=== PATIENT | female | born 1935 | race Caucasian/White ===

== ENCOUNTER 2019-02-18 12:43 | Emergency (ER) | payer MEDICARE, OTHER ==
[~2019-02-18] VITALS: Ht 157.5 cm; Wt 129.3 kg
[~2019-02-18 12:43] MED LIST: ASPI-869 PO; BIMA2.5D EACHEYE; DORZ10DR10 OP; INSU100V11 SQ; LEVO112T2 PO; METF-442 PO; METO-357 PO; VALS160T2 PO
[2019-02-18 13:10] VITALS: BP 150/84
[2019-02-18] MEDS ORDERED: LORAZEPAM INJ 2 MG/ML VIAL IM ONE (13:30)
[2019-02-18] MEDS ORDERED: KETOROLAC TROMETHAMINE INJ 60 MG/2 ML VIAL IM ONE (13:30)
[2019-02-18] MEDS ORDERED: KETOROLAC TROMETHAMINE INJ 30 MG/ML VIAL ONE (13:39)
[2019-02-18] MEDS ORDERED: LORAZEPAM INJ 2 MG/ML VIAL ONE (13:39)
== END 2019-02-18 14:43 | disposition home or self-care (01) ==
LOC: ER 12:49
DX: M54.31 Sciatica, right side (principal); I10 Essential (primary) hypertension; E11.9 Type 2 diabetes mellitus without complications; M19.90 Unspecified osteoarthritis, unspecified site; Z98.890 Other specified postprocedural states; Z79.899 Other long term (current) drug therapy; Z79.84 Long term (current) use of oral hypoglycemic drugs; Z79.4 Long term (current) use of insulin; Z79.82 Long term (current) use of aspirin
CPT/HCPCS: 96372 ×2; 99283; J1885; J2060

== ENCOUNTER 2019-07-15 08:56 | Inpatient (IN) | payer MEDICARE, OTHER ==
[~2019-07-15] VITALS: Ht 152.4 cm; Wt 79.4 kg
--- NOTE | 2019-07-15 09:10 | NUR ---
[place] COOL From home"Syncopal episode today according to family-on arrival she was back to her baseline. Fell yesterday but refused hospital BS 304". On room air, breathing evenly an dunlabored. connected to the monitor and pulse ox. kept comfortable, will continue to monitor accordingly.
[2019-07-15] MEDS ORDERED: IV NS 0.9% 500 ML BAG IV ONE (09:30)
[2019-07-15 09:51] LABS: BASOPHILS # (AUTO) 0.1 /CMM (0.0-0.2); BASOPHILS % (AUTO) 0.5 % (0.0-2.0); EOSINOPHILS % (AUTO) 1.2 % (0.0-6.0); HEMATOCRIT 31 % (33-45); HEMOGLOBIN 10.1 g/dL (11.5-14.8); LYMPHOCYTES # (AUTO) 1.2 /CMM (0.8-4.8); LYMPHOCYTES % (AUTO) 9.5 % (20.0-44.0); MEAN CORPUSCULAR HGB CONC 33 g/dl (31.0-36.0); MEAN CORPUSCULAR VOLUME 98 fL (82-100); MONOCYTES # (AUTO) 0.8 /CMM (0.1-1.30); MONOCYTES % (AUTO) 6.8 % (2.0-12.0); NEUTROPHILS # (AUTO) 10.1 /CMM (1.8-8.9); PLATELET COUNT (AUTO) 208 /CMM (150-450); RED BLOOD CELL COUNT(AUTO) 3.17 MIL/uL (4.0-5.2); WHITE BLOOD COUNT (AUTO) 12.4 K/uL (4.3-11.0)
[2019-07-15 10:07] LABS: ALANINE AMINOTRANSFERASE 18 U/L (12-78); ALBUMIN 2.8 g/dL (3.4-5.0); ALKALINE PHOSPHATASE 88 U/L (46-116); ASPARTATE AMINOTRANSFERASE 17 U/L (15-37); BILIRUBIN,DIRECT 0.1 mg/dL (0.0-0.2); BILIRUBIN,TOTAL 0.3 mg/dL (0.2-1.0); CALCIUM, SERUM 8.6 mg/dL (8.5-10.1); CARBON DIOXIDE 19 mmol/L (21-32); CHLORIDE 107 mmol/L (98-107); GLUCOSE 277 mg/dL (74-106); POTASSIUM 3.1 mmol/L (3.5-5.1); SODIUM SERUM 140 mmol/L (136-145); TOTAL PROTEIN, SERUM 6.1 g/dL (6.4-8.2); UREA NITROGEN, BLOOD 46 mg/dL (7-18)
--- NOTE | 2019-07-15 10:18 | NUR ---
CALLED HOUSE SUP FOR TELE BED
[2019-07-15] MEDS ORDERED: CHOL100062 PO (10:29)
[2019-07-15] MEDS ORDERED: PROP20TA7 PO (10:29)
[2019-07-15] MEDS ORDERED: DULA0.75 SQ (10:29)
[2019-07-15] MEDS ORDERED: FURO-145 PO (10:29)
[2019-07-15] MEDS ORDERED: DOXY100C2 (10:29)
[2019-07-15] MEDS ORDERED: DORZ10DR10 EACHEYE (10:29)
[2019-07-15] MEDS ORDERED: IBUP-1955 PO (10:29)
[2019-07-15] MEDS ORDERED: ACET-2605 PO (10:29)
[2019-07-15] MEDS ORDERED: INSU10VI SQ (10:29)
[2019-07-15] MEDS ORDERED: GABA-532 PO (10:29)
[2019-07-15] MEDS ORDERED: BIMA2.5D5 EACHEYE (10:29)
--- NOTE | 2019-07-15 10:47 | NUR ---
room 313-2
--- NOTE | 2019-07-15 10:55 | NUR ---
report given to Miguel SAWANT for freddy.
--- NOTE | 2019-07-15 11:00 | NUR ---
wheeled patient via gurney accompanied by RN and emt in no distress. RN at bedside to assume care.
[2019-07-15 12:00] VITALS: BP 95/63
--- NOTE | 2019-07-15 12:33 | NUR ---
RN OPENING NOTES RECEIVED PATIENT VIA GURNEY FROM THE ED. PT IS AOX3, VERBAL, AND BED BOUND. SHE IS ON 2L OF OXYGEN FOR COMFORT, NO SOB OR RESP DISTRESS. TELE MONITOR SHOWING SR. IV SITE ON RAC IS PATENT AND INTACT. EYES ARE PERRLA, LUNGS SOUND CLEAR UPON AUSCULTATION, SKIN IS NOT INTACT. LARGE OPEN WOUND ON SACRUM PRESENT. WOUND CONSULT ORDERED. MD ODONNELL MADE AWARE OF PT ARRIVAL TO THE UNIT, WAITING FOR ADMITTING ORDERS. SAFETY MEASURES HAVE BEEN IMPLEMENTED, CALL LIGHT IS WITHIN REACH, BED IS IN LOWEST AND LOCKED POSITION, SIDE RAILS UP X2, WILL CONTINUE TO MONITOR FOR ANY CHANGES.
[2019-07-15] MEDS ORDERED: MAGNESIUM HYDROXIDE 30 ML UDC PO PRN (14:00)
[2019-07-15] MEDS ORDERED: MAG HYDROX/AL HYDROX/SIMETH 30 ML UDC PO PRN (14:00)
[2019-07-15] MEDS ORDERED: Z GUARD REMEDY 2 OZ OINT TP PRN (14:00)
[2019-07-15] MEDS ORDERED: ONDANSETRON HCL/PF 4 MG/2 ML VIAL IVP PRN (14:00)
[2019-07-15] MEDS ORDERED: ACETAMINOPHEN 325 MG TABLET PO PRN (14:00)
[2019-07-15] MEDS ORDERED: ZOLPIDEM TARTRATE 5 MG TABLET PO PRN (14:00)
--- NOTE | 2019-07-15 14:00 | NUR ---
RN NOTES PT TROPONIN LEVEL TRENDING UP, MD ODONNELL MADE AWARE. RECEIVED ORDER FOR ASPIRIN 325 MG ONE TIME, FOLLOWED BY 81 MG ASA DAILY TO BE STARTED TOMORROW. K LEVEL OF 3.1 REPLACED.
[2019-07-15 16:00] VITALS: BP 130/68
[2019-07-15] MEDS ORDERED: ASPIRIN 325 MG TABLET PO ONE (16:00)
[2019-07-15] MEDS ORDERED: DEXTROSE 50%-WATER 50 ML DISP.SYRIN IV PRN (16:00)
[2019-07-15] MEDS ORDERED: POTASSIUM CHLORIDE 20 MEQ TAB.PRT.SR PO ONE (17:00)
[2019-07-15] MEDS: BLOOD SUGAR DIAGNOSTIC 1 EACH STRIP VI SCH ×2 (17:12→21:53)
[2019-07-15] MEDS: INSULIN REGULAR, HUMAN 100 UNIT/ML 3 ML VIAL SQ PRN (17:18)
--- NOTE | 2019-07-15 18:51 | NUR ---
RN CLOSING NOTES PATIENT IS RESTING IN BED COMFORTABLY IN BED, NO S.SX OF DISTRESS. EXPLAINED TO PATIENT THAT URINE SAMPLE IS STILL NEEDED, SHE REFUSED STRAIGHT CATH. PT NEEDS HAVE BEEN MET, VITAL SIGNS ARE STABLE, NO ACUTE CHANGES OCCURRED THROUGHOUT THE SHIFT. SAFETY MEASURES HAVE BEEN IMPLEMENTED, CALL LIGHT IS WITHIN REACH, BED IS IN LOWEST AND LOCKED POSITION, SIDE RAILS UP X2, WILL CONTINUE TO MONITOR FOR ANY CHANGES.
--- NOTE | 2019-07-15 19:41 | NUR ---
RN OPENING NOTES PATIENT RECEIVED RESTING IN BED, A/O X3 MOSTLY SLOV[place] SPEAKING, BUT ABLE TO MAKE NEEDS KNOWN. STABLE ON RA WITH BREATHING EVEN AND UNLABORED, NO SOB NOTED. NO SIGNS OF ACUTE DISTRESS. NO COMPLAINTS OF PAIN OR DISCOMFORT. IV LOCATED ON RAC #18 SL. TELE MONITOR READING SR. SAFETY PRECAUTIONS IN PLACE WITH BED IN LOWEST POSITION, CALL LIGHT WITHIN REACH, BREAKS ON, SIDE RAILS UP. WILL CONTINUE TO MONITOR THROUGHOUT THE SHIFT.
[2019-07-15 20:00] VITALS: BP_SYST 112; BP_SYST 117; BP_DIAS 65
--- NOTE | 2019-07-15 20:18 | NUR ---
SOCIAL MEDIA SENIOR ASSOCIATE NOTES URINE SAMPLE COLLECTED VIA BED FRANKEL.
[2019-07-15] MEDS: HYDROCODONE/APAP 5/325MG TABLET PO PRN (21:53)
[2019-07-15] MEDS: *INSULIN REGULAR(HUMULIN R)HUM 100 UNIT/ML VIAL SQ PRN (21:56)
[2019-07-15 23:39] LABS: APPEARANCE,URINE SL CLOUDY (CLEAR); BILIRUBIN,URINE NEGATIVE (NEGATIVE); BLOOD, URINE TRACE-INTA Ery/uL (NEGATIVE); COLOR,URINE YELLOW (YELLOW); KETONES,URINE NEGATIVE (NEGATIVE); LEUKOCYTE ESTERASE ,URINE TRACE (NEGATIVE); NITRITE, URINE NEGATIVE (NEGATIVE); PROTEIN,URINE TRACE mg/dl (NEGATIVE); UGLUCOSE >=1000 mg/dL (NEGATIVE); UROBILINOGEN,URINE 0.2 EU/dL (0.2)
[2019-07-15 23:55] LABS: CREATININE, URINE 86.7 MG/DL (30.0-125.0); URINE TOTAL PROTEIN 67.5 mg/dL (0-11.9)
[2019-07-16] VITALS (9 sets, daily range): BP systolic 59–135; BP diastolic 46–74
[2019-07-16 00:10] LABS: BACTERIA,URINE Moderate /HPF (None Seen); SQUAMOUS EPITHELIAL CELL,UR Moderate /HPF (None Seen); YEAST,URINE Few /HPF (None Seen)
--- NOTE | 2019-07-16 00:25 | NUR ---
TRIAL CONSULTANT NOTES FOLLOWED UP WITH SKATING RINK ICE MAKER KAUSHAL ABOUT PT VTE SCORE, C/I FOR SCD DEVICES AND NO CHEMICAL PROPHYLAXIS ORDERED. NO NEW ORDERS AT THE MOMENT.
[2019-07-16 00:58] LABS: EOSINOPHIL,URINE None Seen
[2019-07-16] MEDS: BLOOD SUGAR DIAGNOSTIC 1 EACH STRIP VI SCH ×4 (06:41→21:24)
[2019-07-16] MEDS: INSULIN REGULAR, HUMAN 100 UNIT/ML 3 ML VIAL SQ PRN ×3 (06:45→22:42)
--- NOTE | 2019-07-16 07:02 | NUR ---
NURSE CASE MANAGER OPENING NOTES RECEIVED PATIENT RESTING IN BED, A/O X3. CROATIAN SPEAKING, ABLE TO VERBALIZE NEEDS. PATIENT IS SATURATING WELL ON RA. RESPIRATIONS EVEN AND UNLABORED, NO SOB NOTED. NO S/S OF ANY ACUTE DISTRESS. NO C/O PAIN NOTED AT THIS TIME. IV ACCESS TO RAC G#18 INTACT, PATENT, FLUSHING WELL AND SL. EXTERNAL TELE MONITOR READING SR IN THE 80S-90S. SAFETY PRECAUTIONS IN PLACE. BED IN LOWEST LOCKED POSITION, HOB ELEVATED TO SMEI FOWLERS POSITION, SIDE RIALS UP X3, CALL LIGHT WITHIN REACH. WILL CONTINUE TO MONITOR.
[2019-07-16 08:06] LABS: BASOPHILS # (AUTO) 0.1 /CMM (0.0-0.2); BASOPHILS % (AUTO) 0.6 % (0.0-2.0); EOSINOPHILS % (AUTO) 1.3 % (0.0-6.0); HEMATOCRIT 31 % (33-45); HEMOGLOBIN 10.2 g/dL (11.5-14.8); LYMPHOCYTES # (AUTO) 1.9 /CMM (0.8-4.8); LYMPHOCYTES % (AUTO) 17.4 % (20.0-44.0); MEAN CORPUSCULAR HGB CONC 33 g/dl (31.0-36.0); MEAN CORPUSCULAR VOLUME 96 fL (82-100); MONOCYTES # (AUTO) 0.9 /CMM (0.1-1.30); MONOCYTES % (AUTO) 7.7 % (2.0-12.0); NEUTROPHILS # (AUTO) 8.1 /CMM (1.8-8.9); PLATELET COUNT (AUTO) 199 /CMM (150-450); RED BLOOD CELL COUNT(AUTO) 3.22 MIL/uL (4.0-5.2); WHITE BLOOD COUNT (AUTO) 11.1 K/uL (4.3-11.0)
[2019-07-16] MEDS ORDERED: IV NS 0.9% 1,000 ML IV PRN (08:06)
[2019-07-16 08:22] LABS: ALANINE AMINOTRANSFERASE 16 U/L (12-78); ALBUMIN 2.6 g/dL (3.4-5.0); ALKALINE PHOSPHATASE 88 U/L (46-116); ASPARTATE AMINOTRANSFERASE 21 U/L (15-37); BILIRUBIN,TOTAL 0.3 mg/dL (0.2-1.0); CALCIUM, SERUM 8.6 mg/dL (8.5-10.1); CARBON DIOXIDE 16 mmol/L (21-32); CHLORIDE 106 mmol/L (98-107); CREATININE 1.8 mg/dL (0.6-1.3); GLUCOSE 183 mg/dL (74-106); MAGNESIUM 1.9 mg/dL (1.8-2.4); POTASSIUM 3.5 mmol/L (3.5-5.1); SODIUM SERUM 137 mmol/L (136-145); TOTAL PROTEIN, SERUM 6.2 g/dL (6.4-8.2); UREA NITROGEN, BLOOD 49 mg/dL (7-18)
[2019-07-16] MEDS: ASPIRIN 81 MG TAB.CHEW PO SCH (08:26)
[2019-07-16] MEDS: PANTOPRAZOLE 40 MG TABLET.DR PO SCH (08:26)
[2019-07-16] MEDS: ATORVASTATIN 10 MG TABLET PO SCH (08:27)
[2019-07-16 08:30] LABS: CREATINE KINASE, TOTAL 92 U/L (26-192); THYROID STIMULATING HORMONE 3.453 uIU/mL (0.358-3.74)
[2019-07-16 09:00] LABS: THYROID STIMULATING HORMONE 3.617 uIU/mL (0.358-3.74)
[2019-07-16] MEDS ORDERED: IBUPROFEN 600 MG TABLET PO PRN (10:00)
[2019-07-16] MEDS ORDERED: HEPARIN SODIUM, PORCINE 5000 UNITS/1 ML VIAL IV ONE (10:00)
--- NOTE | 2019-07-16 10:08 | NUR ---
PER PEG FROM NUCLEAR MEDICINE, NURSE SHOULD GET CONSENT FOR NUCLEAR MEDICINE PULMONARY PERFUSION WITH VENTILATION. ORDER READ BACK. TELEPHONE CONSENT OBTAINED FROM CHANI (PATIENTS DAUGHTER). ORDERS CARRIED OUT, WILL CONTINUE TO MONITOR
--- NOTE | 2019-07-16 10:20 | NUR ---
PT SEEN BY WOUND NURSE, WOUND TREATMENT DONE, PICTURES OF BLE WOUND TAKEN, DOCUMENT AND FILED IN CHART. WILL CONTINUE TO MONITOR.
--- NOTE | 2019-07-16 10:34 | NUR ---
TELE/RN NOTE PRIMARY NURSE BENTLEY (RN) IS MADE AWARE OF EXTREMITY VENOUS STUDY RESULT WHICH WAS REPORTED TO ME VIA THE PHONE. SEE BELOW THE REPORT GIVEN TO ME AND ENDORSED TO BENTLEY (RN). "POSITIVE DVT WITHIN THE LEFT MID TO DISTAL SUPERFICIAL FEMORAL VEIN AND LEFT POPLITEAL VEIN. No evidence of DVT within the right lower extremity".
[2019-07-16] MEDS: HEPARIN INFUSION/D5W 500 ML IV PRN (10:37)
--- NOTE | 2019-07-16 10:55 | NUR ---
STAT PTT OBTAINED, PATIENT STARTED ON HEPARIN DRIP NOW PER DR GRIGGS'S ORDER. ANOTHER PTT SCHEDULED FOR 1654. WILL CONTINUE TO MONITOR
--- NOTE | 2019-07-16 11:05 | NUR ---
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 PT NOTED TO HAVE WRAPS ON HER LOWER LEGS WHICH WERE REMOVED, REVEALING WOUNDS TO LOWER LEGS AND DRY ESCHAR TO LEFT HEEL, PRESENT ON ADMISSION. PT STATES HAS BEEN TREATED FOR LOWER EXTREMITIES BY A DR COTO ON OUTPATIENT BASIS. RECOMMEND SURGICAL AND DPM CONSULTS. DR FLY MOSHER AND DR SERRA NOTIFIED OF CONSULT REQUESTS. RECOMMENDATIONS MADE FOR SKIN PROTECTION AND FOR SACRAL WOUND CARE. DEFER TO DPM FOR LOWER EXTREMITIES. ISOFLEX LOW AIRLOSS BED TO BE PLACED WHEN AVAILABLE. WILL SEE PRN. CURRENT MIL SCORE IS 14. MD IN AGREEMENT WITH PLAN OF CARE. Addendum: 07/16/19 at 1109 by FREDI KING WNDNU Amended: Links added.
[2019-07-16] MEDS: HYDROCODONE/APAP 5/325MG TABLET PO PRN ×3 (11:30→21:26)
[2019-07-16] MEDS: HYDROGEL DRESSING 90 GM TUBE TP PRN (12:09)
[2019-07-16] MEDS: *INSULIN REGULAR(HUMULIN R)HUM 100 UNIT/ML VIAL SQ PRN (12:16)
[2019-07-16] MEDS: HYDROGEL DRESSING 90 GM TUBE TP SCH (12:26)
[2019-07-16] MEDS: METOPROLOL TARTRATE 50 MG TABLET PO SCH ×2 (12:42→17:19)
--- NOTE | 2019-07-16 13:20 | NUR ---
PATIENT POSITIVE DVT WITHIN LEFT MID TO DISTAL SUPERFICIAL FEMORAL VEIN AND LEFT POPLITEAL VEIN. DR ODONNELL MADE AWARE, NO NEW ORDERS. WILL CONTINUE TO MONITOR
--- NOTE | 2019-07-16 14:50 | NUR ---
PATIENT TRANSPORTED OUT OF UNIT BY BED FOR NUCLEAR MEDICINE PULMONARY PERFUSION WITH VENTILATION PROCEDURE AT THIS TIME. ACLS PROTOCOL IN PLACE. WILL CONTINUE TO MONITOR
--- NOTE | 2019-07-16 16:00 | NUR ---
PATIENT TRANSPORTED BACK BY BED TO [facility] AT THIS TIME. PT APPEARS COMFORTABLE. WILL CONTINUE TO MONITOR
[2019-07-16] MEDS: FUROSEMIDE 20 MG TABLET PO SCH (16:43)
[2019-07-16] MEDS: GABAPENTIN 100 MG CAPSULE PO SCH (16:44)
[2019-07-16] MEDS: PROPRANOLOL HCL 10 MG TABLET PO SCH (16:44)
[2019-07-16] MEDS: DORZOLAMIDE OPTH 2% 10 ML BOTTLE EACHEYE SCH (16:49)
--- NOTE | 2019-07-16 17:55 | NUR ---
CRITICAL LAB VALUE FOR PTT > 170 CALLED IN BY SONNY CULP, SILO WORKER. DOCTOR ODONNELL AND SONNY, CHARGE NURSE MADE AWARE. ASSESSED PATIENT, NO BLEEDING NOTED, NO BLEEDING ON IV SITE. HEPARIN DRIP HELD FOR 1HOUR, HEPARIN PROTOCOL FOLLOWED. WILL ORDER PTT AND RESTART HEPARIN AT 950CC/HR. NO NEW ORDERS, WILL CONTINUE TO MONITOR Addendum: 07/16/19 at 1859 by BENTLEY GR RN CRITICAL LAB VALUE FOR PTT > 170 CALLED IN BY SONNY CULP, SILO WORKER. DOCTOR ODONNELL AND SONNY, CHARGE NURSE MADE AWARE. ASSESSED PATIENT, NO BLEEDING NOTED, NO BLEEDING ON IV SITE. HEPARIN DRIP HELD FOR 1HOUR, HEPARIN PROTOCOL FOLLOWED. WILL ORDER PTT AND RESTART HEPARIN AT 950U/HR AT 19ML/HR. NO NEW ORDERS, WILL CONTINUE TO MONITOR
--- NOTE | 2019-07-16 18:40 | NUR ---
DARELL, HEALTHCARE CUSTOMER SERVICE REQUESTED NURSE TO CALL PT'S FAMILY TO BRING TRULICITY MEDICATION. PT'S DAUGHTER MADE AWARE AND WILL BE BRINGING MEDICATION TOMORROW. WILL CONTINUE TO MONITOR
--- NOTE | 2019-07-16 19:00 | NUR ---
HEPARIN 950U/H DRIP RESTARTED AT THIS TIME AT 19ML/HR. PTT SCHEDULED AFTER 6HOURS. WILL CONTINUE TO MONITOR
--- NOTE | 2019-07-16 19:03 | NUR ---
LADLE WATCHER CLOSING NOTES PT IN BED AWAKE AT THIS TIME. PT REMAINED STABLE THROUGH OUT SHIFT. ALL NEEDS, CARE, WOUND TREATMENT AND MEDICATION ADMINISTERED ANTICIPATED PER ORDER. PT KEPT CLEAN AND DRY. PAIN MANAGEMENT ADMINISTERED. BED IS LOWEST LOCKED POSITION, HOB ELEVATED TO SEMI FOWLERS POSITION, SIDE RIALS UP X3, CALL LIGHT WITHIN REACH. WILL ENDORSE TO MICROFILM OPERATOR NURSE FOR NATALIA
[2019-07-16] MEDS: LATANOPROST EYE DROP 0.005% 2.5 ML BOTTLE OP SCH (21:25)
--- NOTE | 2019-07-16 22:05 | NUR ---
PONY WORKER NOTES AT 2119 IV ON RAC FOUND TO BE INFILTRATED, AT 2134 IV TEAM PAGED, AFTER MULTIPLE UNSUCCESSFUL ATTEMPTS. @2203 MIDLINE WITH 18G PLACED BY YESIKA SAWANT. HEPARIN GTT THEN RESUMED. WILL CONT TO MONITOR
[2019-07-17] VITALS: BP 97/40
--- NOTE | 2019-07-17 02:00 | NUR ---
PROJECT MGR NOTES aPTT DRAWN AND RESULT IS 148.7, PER DOSING ORDER HELD HEPARIN GTT FOR 60 MINS THEN LOWERED BY 250, SO 950 TO 700U/HR. ED WELL
[2019-07-17 04:00] VITALS: BP 102/52
[2019-07-17 04:26] VITALS: BP 102/52
[2019-07-17 05:07] LABS: PTH, INTACT 12 pg/mL (15-65)
[2019-07-17] MEDS: HYDROCODONE/APAP 5/325MG TABLET PO PRN ×3 (05:45→23:35)
[2019-07-17] MEDS: METOPROLOL TARTRATE 50 MG TABLET PO SCH ×5 (06:00→23:35)
[2019-07-17 06:28] LABS: BASOPHILS # (AUTO) 0.1 /CMM (0.0-0.2); BASOPHILS % (AUTO) 0.8 % (0.0-2.0); EOSINOPHILS % (AUTO) 1.9 % (0.0-6.0); HEMATOCRIT 28 % (33-45); HEMOGLOBIN 9.5 g/dL (11.5-14.8); LYMPHOCYTES # (AUTO) 2.3 /CMM (0.8-4.8); LYMPHOCYTES % (AUTO) 22.1 % (20.0-44.0); MEAN CORPUSCULAR HGB CONC 34 g/dl (31.0-36.0); MEAN CORPUSCULAR VOLUME 96 fL (82-100); MONOCYTES # (AUTO) 0.8 /CMM (0.1-1.30); MONOCYTES % (AUTO) 7.6 % (2.0-12.0); NEUTROPHILS # (AUTO) 7.1 /CMM (1.8-8.9); NEUTROPHILS % (AUTO) 67.6 % (43.0-81.0); PLATELET COUNT (AUTO) 192 /CMM (150-450); RED BLOOD CELL COUNT(AUTO) 2.96 MIL/uL (4.0-5.2); WHITE BLOOD COUNT (AUTO) 10.5 K/uL (4.3-11.0)
[2019-07-17 06:49] LABS: CALCIUM, SERUM 8.6 mg/dL (8.5-10.1); CARBON DIOXIDE 16 mmol/L (21-32); CHLORIDE 103 mmol/L (98-107); CREATININE 1.9 mg/dL (0.6-1.3); GLUCOSE 256 mg/dL (74-106); MAGNESIUM 1.9 mg/dL (1.8-2.4); PHOSPHORUS 4.7 mg/dL (2.5-4.9); POTASSIUM 3.5 mmol/L (3.5-5.1); SODIUM SERUM 135 mmol/L (136-145); UREA NITROGEN, BLOOD 54 mg/dL (7-18)
--- NOTE | 2019-07-17 07:30 | NUR ---
PODIATRIC AIDE OPENING NOTES RECEIVED PATIENT AWAKE IN BED ALERT AND ORIENTED X 3, PATIENT IS MONTSERRATIAN SPEAKING AND CAN UNDERSTAND SOME MALTESE, ABLE TO VERBALIZE NEEDS. PATIENT IS SATURATING WELL ON ROOM AIR. RESPIRATIONS EVEN AND UNLABORED, NO SOB NOTED. NO S/S OF ANY ACUTE DISTRESS. NO C/O PAIN NOTED AT THIS TIME. IV ACCESS TO RAC G#18 INTACT, PATENT, FLUSHING WELL AND SL. EXTERNAL TELE MONITOR READING SR 65. SAFETY PRECAUTIONS IN PLACE. BED IN LOW AND LOCKED, HOB ELEVATED TO SMEI FOWLERS POSITION, SIDE RIALS UP X3, CALL LIGHT WITHIN REACH. WILL CONTINUE TO MONITOR THROUGH OUT SHIFT.
--- NOTE | 2019-07-17 07:32 | NUR ---
TELE/RN NOTE MERRY G 18 MIDLINE PATENT AND HEPARIN INFUSING AT 700 U/H. NO APPARENT S/S BLEEDING NOTED AT THIS TIME. WILL CONTINUE TO MONITOR.
[2019-07-17] MEDS: BLOOD SUGAR DIAGNOSTIC 1 EACH STRIP VI SCH ×4 (07:51→21:58)
[2019-07-17] MEDS: INSULIN REGULAR, HUMAN 100 UNIT/ML 3 ML VIAL SQ PRN ×3 (07:51→22:14)
[2019-07-17 08:00] VITALS: BP 106/56
[2019-07-17] MEDS: PROPRANOLOL HCL 10 MG TABLET PO SCH (09:00)
--- NOTE | 2019-07-17 09:15 | NUR ---
TELE/RN NOTE STILL WAITING FOR APPT RESULT. FOLLOW UP CALL WITH LAB WAS MADE. WILL CONTINUE TO FOLLOW-UP.
[2019-07-17] MEDS: GABAPENTIN 100 MG CAPSULE PO SCH ×2 (09:27→18:07)
[2019-07-17] MEDS: FUROSEMIDE 20 MG TABLET PO SCH (09:27)
[2019-07-17] MEDS: ASPIRIN 81 MG TAB.CHEW PO SCH (09:27)
[2019-07-17] MEDS: ATORVASTATIN 10 MG TABLET PO SCH (09:27)
[2019-07-17] MEDS: CHOLECALCIFEROL 1,000 UNIT TABLET (VIT D3) PO SCH (09:27)
[2019-07-17] MEDS: DORZOLAMIDE OPTH 2% 10 ML BOTTLE EACHEYE SCH ×2 (09:28→18:09)
[2019-07-17] MEDS: HYDROGEL DRESSING 90 GM TUBE TP SCH (09:28)
[2019-07-17] MEDS: PANTOPRAZOLE 40 MG TABLET.DR PO SCH (09:30)
--- NOTE | 2019-07-17 09:50 | NUR ---
TELE/RN NOTE RECEIVED CALL FROM LAB REPORTING PTT RESULT 112. PER PROTOCOL HOLDING INFUSING FOR 60 MIN NOW AND AFTER 60 MIN WILL DECREASE HEPARIN INFUSION RATE BY 250 UNITS/HR.
[2019-07-17] MEDS ORDERED: ATORVASTATIN 10 MG TABLET PO SCH (10:30)
[2019-07-17] MEDS ORDERED: ASPIRIN 81 MG TAB.CHEW PO SCH (10:30)
--- NOTE | 2019-07-17 10:44 | NUR ---
TELE/RN NOTE THE PATIENT ALREADY RECEIVED ASPIRIN 81 MG AND LIPITOR 10 MG IN THE MORNING TODAY.
[2019-07-17] MEDS: IV NS 0.9% 1,000 ML IV PRN ×2 (11:00→20:44)
[2019-07-17] MEDS: HEPARIN INFUSION/D5W 500 ML IV PRN (11:10)
--- NOTE | 2019-07-17 11:13 | NUR ---
RN NOTE HEPARIN STARTED TO INFUSE AT 450 U/HR. WILL MONITOR THE PATIENT CLOSELY.
[2019-07-17] MEDS: POTASSIUM CHLORIDE 20 MEQ TAB.PRT.SR PO SCH ×3 (11:52→13:53)
--- NOTE | 2019-07-17 13:35 | NUR ---
MS/RN NOTE THE PATIENT IS NON-COMPLIANT WITH TURNING AND REPOSITIONING DESPITE EXPLAINING RISKS AND BENEFITS MULTIPLE TIMES. THE PATIENT`S PREFERRED POSITION IS SUPINE. WILL CONTINUE TO EDUCATE, ENCOURAGE AND ASSIST WITH TURNING AND REPOSITIONING.
[2019-07-17 14:09] LABS: *SPE A/G RATIO 0.8 (0.7-1.7); *SPE ALBUMIN 2.8 g/dL (2.9-4.4); *SPE ALPHA-1-GLOBULIN 0.3 g/dL (0.0-0.4); *SPE ALPHA-2-GLOBULIN 1.2 g/dL (0.4-1.0); *SPE BETA GLOBULIN 0.9 g/dL (0.7-1.3); *SPE GLOBULIN, TOTAL 3.4 g/dL (2.2-3.9); *SPE M-SPIKE Not Observed g/dL (Not Observed)
--- NOTE | 2019-07-17 15:58 | NUR ---
MS/RN NOTE PTT STILL PENDING.
[2019-07-17 16:00] VITALS: BP 98/47
--- NOTE | 2019-07-17 16:08 | NUR ---
MS/RN NOTE PTT IS 53.1. PER PROTOCOL NO CHANGE. CONTINUING TO INFUSE HEPARIN AT 450U/H.
[2019-07-17] MEDS: *INSULIN REGULAR(HUMULIN R)HUM 100 UNIT/ML VIAL SQ PRN (18:25)
--- NOTE | 2019-07-17 18:57 | NUR ---
MS/RN NOTE THE PATIENT ALERT AND ORIENTED X4. DENIES PAIN. IN ROOM AIR AND SATURATION IS AT 97%. DENIES SOB. RESPIRATION REGULAR AND UNLABORED. THE PATIENT IN NO APPARENT DISTRESS. MERRY G 18 PATENT AND HEPARIN INFUSING AT 450 U/HR. NO APPARENT S/S BLEEDING NOTED. ALSO, NORMAL SALINE INFUSING AT 100ML/HR.BED LOW AND LOCKED. SIDE RAILS UP X3. CALL LIGHT WITHIN REACH. WILL ENDORSE TO SENIOR CISCO NETWORK ENGINEER.
--- NOTE | 2019-07-17 19:35 | NUR ---
RN OPEN NOTES PATIENT IS LAYING IN BED. A/O X4. ON RA, NO SOB/ ACUTE RESPIRATORY DISTRESS NOTED. DENIES ANY PAIN AT THE MOMENT. HEPARIN INFUSING @ 450U/HR, NO S/S OF BLEEDING. BED IS IN LOWEST LOCKED POSITION WITH SIDE RAILS UP X3, SEMI FOWLERS. CALL LIGHT IS WITHIN REACH. WILL CONTINUE TO MONITOR.
[2019-07-17 20:00] VITALS: BP 95/46
[2019-07-17] MEDS: LATANOPROST EYE DROP 0.005% 2.5 ML BOTTLE OP SCH (21:58)
--- NOTE | 2019-07-17 23:05 | NUR ---
RN NOTES CONTACTED DR. MCCALLUM REGARDING PT'S PAIN 08/16 ON LEFT FOOT. PT HAS NO PAIN MEDICATION. DR STATED NORCO [phone] PO Q6HR PRN. ORDER NOTED AND CARRIED OUT.
[2019-07-18] MEDS: HEPARIN INFUSION/D5W 500 ML IV PRN (00:28)
--- NOTE | 2019-07-18 00:28 | NUR ---
RN NOTES HUNG BAG FOR HEPARIN DRIP @ 450U/HR. NO S/S OF BLEEDING. PTT 53.1 WILL CONTINUE TO MONITOR
[2019-07-18] MEDS: IV NS 0.9% 1,000 ML IV PRN ×2 (05:43→16:01)
[2019-07-18] MEDS: METOPROLOL TARTRATE 50 MG TABLET PO SCH ×3 (05:52→17:05)
--- NOTE | 2019-07-18 06:00 | NUR ---
RN NOTES PTT LAB RESULTS: 36.9 INCREASED RATE BY 150U/HR PER PROTOCOL. RATE IS NOW 600U/HR.
[2019-07-18 06:31] LABS: BASOPHILS # (AUTO) 0.1 /CMM (0.0-0.2); BASOPHILS % (AUTO) 0.9 % (0.0-2.0); EOSINOPHILS % (AUTO) 3.3 % (0.0-6.0); HEMATOCRIT 27 % (33-45); LYMPHOCYTES # (AUTO) 1.4 /CMM (0.8-4.8); LYMPHOCYTES % (AUTO) 16.6 % (20.0-44.0); MEAN CORPUSCULAR HGB CONC 33 g/dl (31.0-36.0); MEAN CORPUSCULAR VOLUME 98 fL (82-100); MONOCYTES # (AUTO) 0.7 /CMM (0.1-1.30); MONOCYTES % (AUTO) 7.8 % (2.0-12.0); NEUTROPHILS # (AUTO) 6.1 /CMM (1.8-8.9); NEUTROPHILS % (AUTO) 71.4 % (43.0-81.0); PLATELET COUNT (AUTO) 166 /CMM (150-450); WHITE BLOOD COUNT (AUTO) 8.5 K/uL (4.3-11.0)
[2019-07-18] MEDS: INSULIN REGULAR, HUMAN 100 UNIT/ML 3 ML VIAL SQ PRN ×3 (06:37→17:22)
--- NOTE | 2019-07-18 07:07 | NUR ---
RN CLOSE NOTES PATIENT IS LAYING IN BED. A/O X4. ON 2L NASAL CANULA, NO SOB/ ACUTE RESPIRATORY DISTRESS NOTED. APPEARS COMFORTABLE/ NO COMPLAINTS OF PAIN AT THE MOMENT. MIDLINE IN L UPPER ARM IS PATENT, RUNNING NS @ 100MLS/HR AND ON HEPARIN DRIP @ 450U/HR. BED IS IN LOWEST LOCKED POSITION WITH SIDE RAILS UP X3, SEMI FOWLERS. CALL LIGHT IS WITHIN REACH. WILL ENDORSE TO AM NURSE.
--- NOTE | 2019-07-18 07:10 | NUR ---
Received patient on Heparin drip, rate 600 u/hr. PTT for 11oo am ordered. No distress noted
[2019-07-18 07:41] LABS: ALANINE AMINOTRANSFERASE 24 U/L (12-78); ALBUMIN 2.3 g/dL (3.4-5.0); ALKALINE PHOSPHATASE 85 U/L (46-116); ASPARTATE AMINOTRANSFERASE 60 U/L (15-37); BILIRUBIN,TOTAL 0.2 mg/dL (0.2-1.0); CALCIUM, SERUM 7.7 mg/dL (8.5-10.1); CARBON DIOXIDE 15 mmol/L (21-32); CHLORIDE 105 mmol/L (98-107); CREATININE 1.9 mg/dL (0.6-1.3); GLUCOSE 267 mg/dL (74-106); MAGNESIUM 1.9 mg/dL (1.8-2.4); PHOSPHORUS 4.4 mg/dL (2.5-4.9); POTASSIUM 4.2 mmol/L (3.5-5.1); SODIUM SERUM 134 mmol/L (136-145); TOTAL PROTEIN, SERUM 5.5 g/dL (6.4-8.2); UREA NITROGEN, BLOOD 54 mg/dL (7-18)
[2019-07-18 08:00] VITALS: BP 95/40
[2019-07-18] MEDS: BLOOD SUGAR DIAGNOSTIC 1 EACH STRIP VI SCH ×4 (08:38→21:27)
[2019-07-18] MEDS: ATORVASTATIN 10 MG TABLET PO SCH (08:42)
[2019-07-18] MEDS: ASPIRIN 81 MG TAB.CHEW PO SCH (08:42)
[2019-07-18] MEDS: CHOLECALCIFEROL 1,000 UNIT TABLET (VIT D3) PO SCH (08:42)
[2019-07-18] MEDS: GABAPENTIN 100 MG CAPSULE PO SCH ×2 (08:42→17:04)
[2019-07-18] MEDS: DORZOLAMIDE OPTH 2% 10 ML BOTTLE EACHEYE SCH ×2 (08:44→17:06)
[2019-07-18] MEDS: HYDROGEL DRESSING 90 GM TUBE TP PRN (08:46)
[2019-07-18] MEDS: PANTOPRAZOLE 40 MG TABLET.DR PO SCH (08:48)
[2019-07-18] MEDS: HYDROGEL DRESSING 90 GM TUBE TP SCH (08:49)
--- NOTE | 2019-07-18 09:10 | NUR ---
Received call from dr. Hatch . Patient will have a procedure tomorrow at 0730am. Per dr. Hatch d/c Heparin drip 07/19/19 at 0600 am. Obtain a consent for IVC filter placement. Dr. Hatch will call family.
[2019-07-18] MEDS ORDERED: Dulaglutide (Trulicity) 0.75 MG INJ SCH (10:00)
[2019-07-18] MEDS ORDERED: Dulaglutide (Trulicity) 0.75 MG SQ SCH (10:00)
--- NOTE | 2019-07-18 11:40 | NUR ---
PTT is 48.1 , per protocol no changes. Will continue with rate 600 U/Hr . Will continue to monitor for s/s of bleeding . Next PTT ordered for 0500 am 07/19/19
--- NOTE | 2019-07-18 14:00 | NUR ---
Consent sighed by patient and placed in patient's chart
[2019-07-18] MEDS: HYDROCODONE/APAP 5/325MG TABLET PO PRN ×2 (14:12→21:43)
[2019-07-18 16:00] VITALS: BP 110/44
--- NOTE | 2019-07-18 18:31 | NUR ---
Patient alert and oriented x3, breathing unlabored and even on room air at this time , tolerating well. Patient on Heparin drip, rate 600 u/hr , no changes made per protocol. PTT recheck at 0500 am ordered. Heparin to d/c at [address] Hatch. IVC filter placement scheduled tomorrow at 0730am. Patient is NPO after midnight. R leg dressing changed.MERRY midline intact and patent. Safety precautions in place. Will endorse to next shift for NATALIA.
[2019-07-18] MEDS ORDERED: ANESTHESIA TRAY IN PYXIS 1 EA TRAY MC ONE (18:49)
[2019-07-18 20:00] VITALS: BP 116/56
[2019-07-18] MEDS: LATANOPROST EYE DROP 0.005% 2.5 ML BOTTLE OP SCH (21:53)
[2019-07-18] MEDS: *INSULIN REGULAR(HUMULIN R)HUM 100 UNIT/ML VIAL SQ PRN (21:56)
[2019-07-19] MEDS: METOPROLOL TARTRATE 50 MG TABLET PO SCH ×4 (06:00→17:54)
[2019-07-19] MEDS: BLOOD SUGAR DIAGNOSTIC 1 EACH STRIP VI SCH ×4 (06:06→21:15)
--- NOTE | 2019-07-19 06:30 | NUR ---
MS RN NOTES AWAKE & RESPONSIVE. NOT IN ANY DISTRESS. NO SOB NOTED. DENIES ANY PAIN OR DISCOMFORT AT THIS TIME. WITH IV-ML PATENT & INTACT. KEPT ON NPO P MN. AM CARE DONE. MONITORED ACCORDINGLY. CALL LIGHT WITHIN REACH. BED IN LOWEST POSITION. SR UP X 3 WITH BED ALARM ON FOR SAFETY. WILL ENDORSE TO NEXT SHIFT.
[2019-07-19 06:49] LABS: BASOPHILS % (AUTO) 0.6 % (0.0-2.0); EOSINOPHILS % (AUTO) 3.2 % (0.0-6.0); HEMATOCRIT 27 % (33-45); HEMOGLOBIN 9.2 g/dL (11.5-14.8); LYMPHOCYTES # (AUTO) 1.5 /CMM (0.8-4.8); LYMPHOCYTES % (AUTO) 18.1 % (20.0-44.0); MEAN CORPUSCULAR HGB CONC 34 g/dl (31.0-36.0); MEAN CORPUSCULAR VOLUME 97 fL (82-100); MONOCYTES # (AUTO) 0.7 /CMM (0.1-1.30); MONOCYTES % (AUTO) 8.8 % (2.0-12.0); NEUTROPHILS # (AUTO) 5.7 /CMM (1.8-8.9); NEUTROPHILS % (AUTO) 69.3 % (43.0-81.0); PLATELET COUNT (AUTO) 185 /CMM (150-450); RED BLOOD CELL COUNT(AUTO) 2.81 MIL/uL (4.0-5.2); WHITE BLOOD COUNT (AUTO) 8.1 K/uL (4.3-11.0)
[2019-07-19 07:02] LABS: CALCIUM, SERUM 7.9 mg/dL (8.5-10.1); CARBON DIOXIDE 16 mmol/L (21-32); CHLORIDE 107 mmol/L (98-107); CREATININE 1.4 mg/dL (0.6-1.3); GLUCOSE 198 mg/dL (74-106); MAGNESIUM 1.7 mg/dL (1.8-2.4); PHOSPHORUS 3.5 mg/dL (2.5-4.9); POTASSIUM 3.7 mmol/L (3.5-5.1); SODIUM SERUM 136 mmol/L (136-145); UREA NITROGEN, BLOOD 41 mg/dL (7-18)
[2019-07-19] MEDS ORDERED: FENTANYL PF 100MCG/2ML AMPUL ONE (07:13)
[2019-07-19] MEDS ORDERED: LIDOCAINE HCL/PF 1% 30 ML SDV ONE (07:31)
--- NOTE | 2019-07-19 07:31 | NUR ---
Patient is absent ; picked up by OR staff for procedure
[2019-07-19] MEDS ORDERED: IOHEXOL 240MG/ML 50 ML IV ONE (07:38)
[2019-07-19 08:00] VITALS: BP 133/56
--- NOTE | 2019-07-19 08:30 | NUR ---
Patient came back from OR . Awake alert and oriented x3, no distress noted . Dressing on R groin. Will monitor for breeding
[2019-07-19] MEDS: GABAPENTIN 100 MG CAPSULE PO SCH ×2 (09:19→16:57)
[2019-07-19] MEDS: ASPIRIN 81 MG TAB.CHEW PO SCH (09:19)
[2019-07-19] MEDS: ATORVASTATIN 10 MG TABLET PO SCH (09:19)
[2019-07-19] MEDS: CHOLECALCIFEROL 1,000 UNIT TABLET (VIT D3) PO SCH (09:19)
[2019-07-19] MEDS: PANTOPRAZOLE 40 MG TABLET.DR PO SCH (09:23)
[2019-07-19] MEDS: DORZOLAMIDE OPTH 2% 10 ML BOTTLE EACHEYE SCH ×2 (09:23→16:57)
[2019-07-19] MEDS: APIXABAN 2.5 MG TABLET PO SCH ×2 (09:25→16:58)
[2019-07-19] MEDS: HYDROGEL DRESSING 90 GM TUBE TP SCH (09:26)
[2019-07-19] MEDS: HYDROGEL DRESSING 90 GM TUBE TP PRN (09:26)
[2019-07-19] MEDS: Magnesium 1GM/D5W 100ML PREMIX 100 ML IV SCH ×2 (09:39→10:51)
[2019-07-19] MEDS: IV NS 0.9% 1,000 ML IV PRN (09:39)
[2019-07-19] MEDS: HYDROCODONE/APAP 5/325MG TABLET PO PRN ×2 (10:47→21:45)
[2019-07-19] MEDS: INSULIN REGULAR, HUMAN 100 UNIT/ML 3 ML VIAL SQ PRN ×2 (11:14→16:59)
--- NOTE | 2019-07-19 14:20 | NUR ---
Left left dressing changed , wound care as ordered. Patient denies pain at this time.
--- NOTE | 2019-07-19 14:30 | NUR ---
Patient refused to take a picture of redness on labia, refused to take a picture b/l legs wound and b/l heels.
[2019-07-19 16:00] VITALS: BP 121/63
[2019-07-19] MEDS ORDERED: APIXABAN 2.5 MG TABLET PO SCH (17:00)
--- NOTE | 2019-07-19 18:29 | NUR ---
Patient alert and oriented x3, breathing unlabored and even , pt on room air at this time , tolerating well. Patient s/p IVC filter placement , dressing on R groin intact and patent , no bleeding noted. L leg dressing changed.MERRY midline intact and patent., fluid running as ordered. All needs attended. Patient kept clean and dry , repositioned.D/C tomorrow home. Safety precautions in place, call light within reach. Will endorse to next shift for NATALIA.
[2019-07-19 20:00] VITALS: BP 116/47
[2019-07-19] MEDS: *INSULIN REGULAR(HUMULIN R)HUM 100 UNIT/ML VIAL SQ PRN (21:34)
[2019-07-19] MEDS: LATANOPROST EYE DROP 0.005% 2.5 ML BOTTLE OP SCH (22:04)
[2019-07-20] MEDS: METOPROLOL TARTRATE 50 MG TABLET PO SCH ×4 (06:20→17:15)
[2019-07-20] MEDS: HYDROCODONE/APAP 5/325MG TABLET PO PRN ×2 (06:43→10:59)
[2019-07-20 06:54] LABS: BASOPHILS % (AUTO) 0.6 % (0.0-2.0); EOSINOPHILS % (AUTO) 3.4 % (0.0-6.0); HEMATOCRIT 28 % (33-45); LYMPHOCYTES # (AUTO) 1.2 /CMM (0.8-4.8); LYMPHOCYTES % (AUTO) 15.1 % (20.0-44.0); MEAN CORPUSCULAR HGB CONC 33 g/dl (31.0-36.0); MEAN CORPUSCULAR VOLUME 97 fL (82-100); MONOCYTES # (AUTO) 0.6 /CMM (0.1-1.30); MONOCYTES % (AUTO) 8.3 % (2.0-12.0); NEUTROPHILS # (AUTO) 5.6 /CMM (1.8-8.9); NEUTROPHILS % (AUTO) 72.6 % (43.0-81.0); PLATELET COUNT (AUTO) 183 /CMM (150-450); RED BLOOD CELL COUNT(AUTO) 2.83 MIL/uL (4.0-5.2); WHITE BLOOD COUNT (AUTO) 7.7 K/uL (4.3-11.0)
--- NOTE | 2019-07-20 06:59 | NUR ---
MS RN NOTES AWAKE & RESPONSIVE. NOT IN ANY DISTRESS. NO SOB NOTED. DENIES ANY PAIN OR DISCOMFORT AT THIS TIME. WITH IV-ML PATENT & INTACT. AM CARE DONE. MONITORED ACCORDINGLY. CALL LIGHT WITHIN REACH. BED IN LOWEST POSITION. SR UP X 3 WITH BED ALARM ON FOR SAFETY. WILL ENDORSE TO NEXT SHIFT.
[2019-07-20] MEDS: BLOOD SUGAR DIAGNOSTIC 1 EACH STRIP VI SCH ×3 (07:05→17:14)
[2019-07-20 07:17] LABS: CREATININE 1.2 mg/dL (0.6-1.3); MAGNESIUM 2.2 mg/dL (1.8-2.4); POTASSIUM 3.9 mmol/L (3.5-5.1)
[2019-07-20] MEDS: PANTOPRAZOLE 40 MG TABLET.DR PO SCH (07:30)
--- NOTE | 2019-07-20 07:41 | NUR ---
MS RN OPENING NOTES RECEIVED PATIENT IN BED, ASLEEP. PATIENT IS ON ROOM AIR; BREATHING IS EVEN AND UNLABORED. NO SOB PRESENT AT THIS TIME. MERRY MIDLINE PRESENT AND INTACT, INFUSING NS AT THIS TIME; 100 MLS/HR. NO S/S OF PAIN AT THE MOMENT SUCH FACIAL GRIMACING OR MOANING. SAFETY PRECAUTIONS IN PLACE; BED IN LOW POSITION AND LOCKED, RAILS UP X2, CALL LIGHT WITHIN REACH. WILL CONTINUE TO MONITOR PATIENT.
[2019-07-20 08:00] VITALS: BP 108/45
[2019-07-20] MEDS: ASPIRIN 81 MG TAB.CHEW PO SCH (08:30)
[2019-07-20] MEDS: CHOLECALCIFEROL 1,000 UNIT TABLET (VIT D3) PO SCH (08:31)
[2019-07-20] MEDS: ATORVASTATIN 10 MG TABLET PO SCH (08:31)
[2019-07-20] MEDS: HYDROGEL DRESSING 90 GM TUBE TP SCH (08:31)
[2019-07-20] MEDS: GABAPENTIN 100 MG CAPSULE PO SCH ×2 (08:31→16:27)
[2019-07-20] MEDS: DORZOLAMIDE OPTH 2% 10 ML BOTTLE EACHEYE SCH ×2 (08:32→16:28)
[2019-07-20] MEDS: APIXABAN 2.5 MG TABLET PO SCH ×2 (08:34→16:28)
[2019-07-20] MEDS: IV NS 0.9% 1,000 ML IV PRN (15:49)
[2019-07-20 16:00] VITALS: BP 105/48
[2019-07-20] MEDS: INSULIN REGULAR, HUMAN 100 UNIT/ML 3 ML VIAL SQ PRN (17:26)
--- NOTE | 2019-07-20 18:36 | NUR ---
MS RN CLOSING NOTES PATIENT IN BED, AWAKE, A/O X4 AND AWAITING TO BE D/C AND PICKED UP AT 1930 BY THE AMBULANCE. PATIENT IS ON ROOM AIR; BREATHING IS EVEN AND UNLABORED. NO SOB PRESENT AT THIS TIME. MERRY MIDLINE PRESENT AND INTACT, INFUSING NS AT 100 MLS/HR. COMPLAINING OF MILD ABDOMINAL PAIN DUE TO GAS. ALL NEEDS ATTENDED TO THROUGHOUT THE DAY. SAFETY PRECAUTIONS REMAIN IN PLACE; BED IN LOW POSITION AND LOCKED, RAILS UP X2, CALL LIGHT WITHIN REACH. WILL ENDORSE TO TOLL LINE REPAIRER NURSE.
[2019-07-20 20:00] VITALS: BP 130/58
--- NOTE | 2019-07-20 20:26 | NUR ---
MS RN NOTES: PATIENT D/C HOME TONIGHT, LEFT UPPER ARM MIDLINE REMOVED, NO BLEEDING NOTED, COVERED WITH GAUZE DRESSING. PATIENT'S DIAPER WAS VERY FULL, DEISY-CARE DONE AND MEPILEX FOAM DRESSING ON THE SACRAL AREA CHANGED, KEPT THE PATIENT CLEAN AND DRY. GOWN CHANGED. DRESSING ON THE LLE CLEAN,DRY AND INTACT. MEPILEX DRESSING ON THE RLE CLEAN,DRY AND INTACT. REPORTS GIVEN TO THE AMBULANCE PERSONNEL. NO SOB NOTED. PATIENT IS A/O X4. NO COMPLAIN OF PAIN.
--- NOTE | 2019-07-20 20:26 | NUR ---
D/C PACKET WAS PREPARED AND PRINTED BY THE AM SHIFT SAVANA APARICIO AND GIVEN TO THE AMBULANCE PERSONNEL.
[2019-07-21] MEDS ORDERED: SILVER SULFADIAZINE CREAM 25 GM TUBE TP SCH (09:00)
== END 2019-07-20 20:30 | disposition home health service (06) | DRG 252 ==
LOC: ER 08:59 → TELE 10:56 → MED 07-17 10:14
PROVIDERS: ADMIT Student in an Organized Health Care Education/Training Program
PROC: 05HY33Z Insertion of Infusion Device into Upper Vein, Percutaneous Approach (ICD-10-PCS; 2019-07-16)
PROC: 0JB70ZZ Excision of Back Subcutaneous Tissue and Fascia, Open Approach (ICD-10-PCS; principal; 2019-07-17)
PROC: 06H03DZ Insertion of Intraluminal Device into Inferior Vena Cava, Percutaneous Approach (ICD-10-PCS; 2019-07-19)
DX: I82.432 Acute embolism and thrombosis of left popliteal vein (principal); I26.99 Other pulmonary embolism without acute cor pulmonale; L89.153 Pressure ulcer of sacral region, stage 3; I21.A1 Myocardial infarction type 2; N17.9 Acute kidney failure, unspecified; I87.313 Chronic venous hypertension (idiopathic) with ulcer of bilateral lower extremity; L97.929 Non-pressure chronic ulcer of unspecified part of left lower leg with unspecified severity; L97.919 Non-pressure chronic ulcer of unspecified part of right lower leg with unspecified severity; D68.69 Other thrombophilia; I82.412 Acute embolism and thrombosis of left femoral vein; I95.1 Orthostatic hypotension; E11.9 Type 2 diabetes mellitus without complications; I10 Essential (primary) hypertension; E66.9 Obesity, unspecified; E11.65 Type 2 diabetes mellitus with hyperglycemia; E86.0 Dehydration; I12.9 Hypertensive chronic kidney disease with stage 1 through stage 4 chronic kidney disease, or unspecified chronic kidney disease; N18.9 Chronic kidney disease, unspecified; M19.90 Unspecified osteoarthritis, unspecified site; E11.22 Type 2 diabetes mellitus with diabetic chronic kidney disease; E87.6 Hypokalemia; D64.9 Anemia, unspecified; Z68.34 Body mass index [BMI] 34.0-34.9, adult; I87.2 Venous insufficiency (chronic) (peripheral); Z91.81 History of falling; Z79.4 Long term (current) use of insulin
CPT/HCPCS: 36410; 36415; 71045-TC; 74018; 76770-TC; 78582; 80048-TC; 80053-TC; 80076-TC; 81000-TC; 82550-TC; 82570-TC; 82728-TC; 82962-TC; 83540-TC; 83735-TC; 83970; 84100-TC; 84155; 84155-TC; 84165; 84300-TC; 84439-TC; 84443-TC; 84484-TC; 85025-TC; 85730-TC; 86850-TC; 87081-TC; 87086-TC; 93307-TC; 93970-TC; 97110-TC; 97116-TC; 97530-TC; A6248; A6253; A9540; A9567; C1769; C1880; G0378; J0690; J1644; J1815; J2704; J3010; J3475; J3490; J7030; J7040; J7050; Q9966

== ENCOUNTER 2019-08-08 12:31 | Emergency (ER) | payer MEDICARE, OTHER ==
[~2019-08-08] VITALS: Ht 154.9 cm; Wt 79.4 kg
[~2019-08-08 12:31] MED LIST changes: +ACET-2605 PO; -ASPI-869 PO; -BIMA2.5D EACHEYE; +BIMA2.5D5 EACHEYE; +CHOL100062 PO; +DORZ10DR10 EACHEYE; -DORZ10DR10 OP; +DOXY100C2; +DULA0.75 SQ; +FURO-145 PO; +GABA-532 PO; +IBUP-1955 PO; -INSU100V11 SQ; +INSU10VI SQ; -LEVO112T2 PO; -METF-442 PO; -METO-357 PO; +PROP20TA7 PO; -VALS160T2 PO
--- NOTE | 2019-08-08 12:39 | NUR ---
[id number] HOME C/O DYSURIA, BLOOD NOTED IN DIAPER SINCE LAST NIGHT, PT ON KEFLEX SINCE YESTERDAY FOR UTI. TO ER BED 10, HOOKED TO MONITOR, CHANGED TO HOSP GOWN, WARM BLANKET PROVIDED, PATIENT AAO x 3, BREATHING EVEN AND UNLABORED. DR CASTRO AT BEDSIDE FOR EVAL.
--- NOTE | 2019-08-08 13:09 | NUR ---
DR CASTRO AT BEDSIDE FOR EVAL
--- NOTE | 2019-08-08 13:12 | NUR ---
URINE SAMPLE SENT TO LAB
[2019-08-08 13:26] LABS: APPEARANCE,URINE CLOUDY (CLEAR); COLOR,URINE OTHER (YELLOW)
[2019-08-08 13:27] LABS: BASOPHILS % (AUTO) 0.6 % (0.0-2.0); EOSINOPHILS % (AUTO) 3.2 % (0.0-6.0); HEMATOCRIT 33 % (33-45); HEMOGLOBIN 10.8 g/dL (11.5-14.8); LYMPHOCYTES # (AUTO) 1.1 /CMM (0.8-4.8); LYMPHOCYTES % (AUTO) 14.7 % (20.0-44.0); MEAN CORPUSCULAR HGB CONC 33 g/dl (31.0-36.0); MEAN CORPUSCULAR VOLUME 95 fL (82-100); MONOCYTES # (AUTO) 0.6 /CMM (0.1-1.30); MONOCYTES % (AUTO) 7.8 % (2.0-12.0); NEUTROPHILS # (AUTO) 5.6 /CMM (1.8-8.9); NEUTROPHILS % (AUTO) 73.7 % (43.0-81.0); PLATELET COUNT (AUTO) 426 /CMM (150-450); RED BLOOD CELL COUNT(AUTO) 3.46 MIL/uL (4.0-5.2); WHITE BLOOD COUNT (AUTO) 7.6 K/uL (4.3-11.0)
[2019-08-08 13:35] LABS: CALCIUM, SERUM 8.2 mg/dL (8.5-10.1); CREATININE 1.1 mg/dL (0.6-1.3); POTASSIUM 3.8 mmol/L (3.5-5.1)
[2019-08-08 13:40] LABS: BACTERIA,URINE 1+ /HPF (None Seen); RBC,URINE 21-50 /HPF (0-2); SQUAMOUS EPITHELIAL CELL,UR Moderate /HPF (None Seen)
[2019-08-08 13:42] LABS: HYALINE CASTS, URINE Few /LPF (None Seen)
[2019-08-08 13:43] LABS: MUCUS,URINE Rare /LPF (None Seen)
--- NOTE | 2019-08-08 14:11 | NUR ---
SPOKE TO DAUGHTER CHANI [phone], NOT ABLE TO STATISTICAL TECHNICIAN PATIENT, REQUESTED TO SET-UP AMBULANCE. FAMILY WILLING TO PAY
--- NOTE | 2019-08-08 14:23 | NUR ---
CALLED [facility] GOING HOME AT 1500 PER RAMOS
--- NOTE | 2019-08-08 15:04 | NUR ---
PATIENT PICKED UP BY [facility] IN STABLE CONDITION, PATIENT WILL BE BROUGHT HOME. Written and verbal after care instructions given. Patient verbalizes understanding of instruction.
[2019-08-08 15:13] VITALS: BP 146/73
== END 2019-08-08 15:22 | disposition home or self-care (01) ==
LOC: ER 12:37
DX: N39.0 Urinary tract infection, site not specified (principal); R31.9 Hematuria, unspecified; I10 Essential (primary) hypertension; E11.9 Type 2 diabetes mellitus without complications; Z98.890 Other specified postprocedural states; Z79.899 Other long term (current) drug therapy; Z79.4 Long term (current) use of insulin; Z68.30 Body mass index [BMI] 30.0-30.9, adult
CPT/HCPCS: 36415; 80048-TC; 81000-TC; 85025-TC